=== PATIENT | female | born 1960 | race Caucasian/White ===

== ENCOUNTER 2016-11-21 10:34 | Day surgery (SDC) | payer OTHER ==
[2016-11-18 17:28] LABS: HEMATOCRIT 39.3 % (36.0-48.0); HEMOGLOBIN 13.2 g/dL (12.0-16.0)
[2016-11-18 17:44] LABS: BUN (BLOOD UREA NITROGEN) 17 MG/DL (6-23); CHLORIDE, SERUM 108 MMOL/L (96-112); CO2 (CARBON DIOXIDE) 30 MMOL/L (24-34); CREATININE 0.74 MG/DL (0.55-1.02); GFR AFRICAN AMERICAN 104 ML/MIN (>=60); GFR NON AFRICAN AMERICAN 89 ML/MIN (>=60); POTASSIUM, SERUM 4.1 MMOL/L (3.5-5.3); SODIUM, SERUM 144 MMOL/L (135-148)
[2016-11-18 17:46] LABS: CALCIUM, SERUM 9.6 MG/DL (8.5-10.4); GLUCOSE, SERUM 98 MG/DL (60-99)
--- NOTE | ~2016-11-21 | OP ---
Record Of Operation [facility] [address] [place]. [address] NAME: TIMOTEO PANTOJA : 56 [place]US [place] [facility] [place] [id number] AGE: 56 ADM/REG DATE : 11/21/16 MR#: [id number] REPORT SERV DATE: 11/22/16 DICTATED BY: GALO ANDREWS III DATE: 11/21/16 REPORT STATUS : Draft TRANSCRIBED BY: MODL DATE: 11/21/16 DATE OF PROCEDURE: 11/19/2016 PREOPERATIVE DIAGNOSIS: Torn posterior horn of the medial meniscus, left knee. POSTOPERATIVE DIAGNOSIS: Torn posterior horn of the medial meniscus, left knee, with grade 3 chondromalacia of the medial femoral condyle, grade 2 changes in the patellofemoral joint. SURGICAL PROCEDURE PERFORMED: 1. Arthroscopic excision, complex tear posterior horn of the medial meniscus, left knee. 2. Abrasion and thermal chondroplasty, medial femoral condyle and patellofemoral joint. SURGEON: Galo Andrews M.D. COMMERCIAL DECORATOR: Kim Mon. ANESTHESIA: General. ANTIBIOTICS: Ancef 2 g. COMPLICATIONS: None. TOURNIQUET TIME: 18 minutes. PROCEDURE IN DETAIL: The patient was brought to the operative room, placed on the table in supine position, and general anesthesia was induced. Ancef 2 g was administered intravenously in the operating room. Pneumatic tourniquet was applied to the left upper thigh along with the arthroscopic leg tripp. Left lower extremity was prepped and draped in the usual sterile fashion. It was exsanguinated with a 6-inch Esmarch. Tourniquet was inflated to 350 mmHg. Assuring good anesthesia, a standard anterolateral portal was provided. The arthroscope was inserted. The knee was inflated with sterile normal saline by means of the arthroscopic pump. Suprapatellar pouch was first visualized as there were two small chondral loose bodies. These were removed with the suction shaver through the anteromedial portal. Patellofemoral joint had a little chondral wearing in the median ridge. Abrasion chondroplasty was carried out at this zone with a 4.5 shaver, and a contour wand was used to perform thermal chondroplasty as well. The intercondylar notch revealed abundant synovial tissue and infrapatellar fat pad. This was debrided with a 4.5 shaver. The lateral compartment revealed normal lateral meniscus, lateral femoral condyle, and lateral tibial plateau. The medial compartment had a complex tear at the posterior horn of the medial meniscus that could be displaced, parrot-beak type tear that could be displaced into the joint. This was debrided with straight angled ducklings, contoured with a 4.5 shaver, and the contour wand. Medial femoral condyle had grade 3 changes with softening of the articular surface. Abrasion chondroplasty was carried out to this area with a 4.5 shaver as well as a thermal chondroplasty with the contour wand. No further pathology was appreciated. Thorough irrigation was carried out. Instrumentation was removed. Portals were closed with 4-0 nylon. Knee was injected with 30 mL of 0.5% Marcaine solution plain Record Of Operation [facility] [id number] [facility] [place]. [address] NAME: TIMOTEO PANTOJA : 56 STATUS : REG [facility] PAT#: [id number] AGE: 56 ADM/REG DATE : 11/21/16 MR#: [id number] REPORT SERV DATE: 11/22/16 DICTATED BY: GALO ANDREWS III DATE: 11/21/16 REPORT STATUS : Draft TRANSCRIBED BY: MODL DATE: 11/21/16 with 80 mg of Depo-Medrol. Sterile dressings were applied. Tourniquet was released after 18 minutes. The patient tolerated the procedure well, brought to the recovery room in satisfactory condition. TB/USMANL Galo Andrews III, M.D. / [id number] CC: Galo Andrews III, M.D.
[~2016-11-21 10:34] MED LIST: ALEVE220 MG PO; CELEXA40 MG PO; CIP5 PO; FLONASE NAS; LEXAPRO10 PO; LEXAPRO20 PO; NORCO1 TA1 PO; NORV5 PO; PCET PO; PRIN20 PO; SEROQUEL1C PO; UROGESIC-BLU OR; VOLT50 PO; WELLSR100 PO; XANAX1 MG PO; ZOVIRAX400 MG PO; ZYRTEC ALLGY10 MG PO
== END 2016-11-21 23:59 | disposition home or self-care (01) ==
LOC: MSC 10:34
PROVIDERS: Orthopaedic Surgery
PROC: 0SBD4ZZ Excision of Left Knee Joint, Percutaneous Endoscopic Approach (ICD-10-PCS; principal; 2016-11-21 12:45)
DX: S83.242A Other tear of medial meniscus, current injury, left knee, initial encounter (principal); M22.42 Chondromalacia patellae, left knee; I10 Essential (primary) hypertension; K21.9 Gastro-esophageal reflux disease without esophagitis; F43.10 Post-traumatic stress disorder, unspecified; L71.9 Rosacea, unspecified; Z88.8 Allergy status to other drugs, medicaments and biological substances; Z98.890 Other specified postprocedural states; Z98.51 Tubal ligation status; Z90.5 Acquired absence of kidney; F32.9 Major depressive disorder, single episode, unspecified; F41.9 Anxiety disorder, unspecified; N20.0 Calculus of kidney; R35.1 Nocturia; E72.01 Cystinuria; M19.90 Unspecified osteoarthritis, unspecified site; J30.2 Other seasonal allergic rhinitis; Z91.041 Radiographic dye allergy status; Z79.899 Other long term (current) drug therapy
CPT/HCPCS: 80048; 85014; 85018; 93005; A9270-GY; J0690; J1040; J2250; J2270; J2405; J3010